=== PATIENT | female | born 1970 | race Caucasian/White ===

== ENCOUNTER 2017-07-27 19:00 | Emergency (ER) | payer BC, OTHER ==
[2017-07-27 19:12] VITALS: TEMP 98.7
[2017-07-27] MEDS ORDERED: MORPHINE SULFATE/PF 10MG/10ML VL IV STA (19:57)
[2017-07-27] MEDS ORDERED: METOCLOPRAMIDE 5 MG/ML 2 ML VIAL IVP STA (19:57)
[2017-07-27] MEDS ORDERED: diphenhydrAMINE 50 MG/ML 1 ML VIAL IVP STA (19:57)
[2017-07-27] MEDS ORDERED: SODIUM CHLORIDE 0.9% 1,000 ML IV STA ×2 (19:57)
--- NOTE | 2017-07-27 19:57 | ED ---
General Adult HPI - General Chief complaint: Headache Stated complaint: MIGRAINE Time Seen by Provider: 07/27/17 19:47 Source: patient, RN notes reviewed, old records reviewed Mode of arrival: wheelchair Limitations: no limitations - History of Present Illness Initial comments: 47-year-old female with history of migraine headache and trigeminal neuralgia presents with worsening headache over the past several days. Patient states that approximately one week ago her trigeminal neuralgia began acting up, she has had shooting pain on the right side of her face intermittently. She took one extra carbamazepine today in hopes of alleviating the symptoms. Patient also has history of migraine and has had typical frontal migraine which is worsening over the past several days. This was gradual in onset. She does have some mild photophobia and nausea. No vomiting. Denies any focal weakness. States she is generally weak. Denies any paresthesias, no vision changes. Headaches are typical in character to her usual headache however they are more severe. No fever or chills, no chest pain or shortness of breath. No abdominal pain. - Related Data Home Medications Medication Instructions Recorded Confirmed Citalopram Hydrobromide [CeleXA] 40 mg PO DAILY 04/13/14 07/27/17 carBAMazepine [TEGretol] 200 mg PO TID 04/13/14 07/27/17 Ascorbic Acid [Vitamin C] 1,000 mg PO DAILY 07/27/17 07/27/17 Allergies Allergy/AdvReac Type Severity Reaction Status Date / Time No Known Allergies Allergy Verified 07/27/17 20:19 Review of Systems ROS Statement: Those systems with pertinent positive or pertinent negative responses have been documented in the HPI. ROS Other: All systems not noted in ROS Statement are negative. Past Medical History Past Medical History: Cancer, Thyroid Disorder Additional Past Medical History / Comment(s): HYPOTHYROID(NO MEDS), MIGRAINES, BREAST CANCER. History of Any Multi-Drug Resistant Organisms: None Reported Past Surgical History: Uterine Ablation Additional Past Surgical History / Comment(s): STATES MULTIPLE SURGERYS-ADD TO HX ON ARRIVAL. Past Anesthesia/Blood Transfusion Reactions: Motion Sickness, Postoperative Nausea & Vomiting (PONV) Past Psychological History: Anxiety Smoking Status: Former smoker Past Alcohol Use History: None Reported Past Drug Use History: None Reported General Exam Limitations: no limitations General appearance: alert, in distress Head exam: Present: atraumatic, normocephalic Eye exam: Present: normal appearance, PERRL, EOMI ENT exam: Present: mucous membranes dry Neck exam: Present: normal inspection, full ROM. Absent: tenderness, meningismus Respiratory exam: Present: normal lung sounds bilaterally. Absent: respiratory distress, wheezes Cardiovascular Exam: Present: regular rate, normal rhythm GI/Abdominal exam: Present: soft. Absent: distended, tenderness, guarding, rebound Neurological exam: Present: alert, oriented X3, CN II-XII intact. Absent: motor sensory deficit Psychiatric exam: Present: normal affect, normal mood Skin exam: Present: warm, dry, intact. Absent: cyanosis, diaphoretic Course Vital Signs 07/27/17 07/27/17 07/27/17 19:08 20:25 21:00 Temperature 98.7 F Pulse Rate 101 H 84 81 Respiratory 20 16 16 Rate Blood Pressure 133/77 127/83 113/69 O2 Sat by Pulse 96 93 L 94 L Oximetry - Reevaluation(s) Reevaluation #1: 07/27/17 21:47 On reevaluation, patient is completely pain-free headache resolved. Neuro exam : Intact, no deficits. Medical Decision Making - Medical Decision Making 47-year-old female presents for evaluation of headache, history of migraine headache and trigeminal neuralgia. Both of her symptoms are consistent with previous headaches however more severe. Patient's neuro exam is nonfocal. Head CT is obtained, this is negative for any acute intracranial hemorrhage or mass effect. Patient is given a headache cocktail and IV hydration. On reevaluation her headache is completely resolved. She is resting emergency department. She is accompanied by her niece will drive her home. She lives with her and will return with any worsening or changing symptoms. CBC and electrolytes within normal limits. - Lab Data Result diagrams: 07/27/17 19:52 07/27/17 19:52 Lab Results 07/27/17 07/27/17 Range/Units 19:52 19:52 WBC 8.9 (3.8-10.6) k/uL RBC 4.17 (3.80-5.40) m/uL Hgb 13.6 (11.4-16.0) gm/dL Hct 40.3 (34.0-46.0) % MCV 96.6 (80.0-100.0) fL MCH 32.6 (25.0-35.0) pg MCHC 33.7 (31.0-37.0) g/dL RDW 12.7 (11.5-15.5) % Plt Count 443 (150-450) k/uL Neutrophils % 65 % Lymphocytes % 24 % Monocytes % 6 % Eosinophils % 3 % Basophils % 1 % Neutrophils # 5.8 (1.3-7.7) k/uL Lymphocytes # 2.1 (1.0-4.8) k/uL Monocytes # 0.5 (0-1.0) k/uL Eosinophils # 0.2 (0-0.7) k/uL Basophils # 0.1 (0-0.2) k/uL Sodium 137 (137-145) mmol/L Potassium 4.2 (3.5-5.1) mmol/L Chloride 99 (98-107) mmol/L Carbon Dioxide 23 (22-30) mmol/L Anion Gap 15 mmol/L BUN 8 (7-17) mg/dL Creatinine 0.60 (0.52-1.04) mg/dL Est GFR (CKD-EPI)AfAm >90 (>60 ml/min/1.73 sqM) Est GFR (CKD-EPI)NonAf >90 (>60 ml/min/1.73 sqM) Glucose 158 H (74-99) mg/dL Calcium 9.3 (8.4-10.2) mg/dL Total Bilirubin 0.4 (0.2-1.3) mg/dL AST 27 (14-36) U/L ALT 61 H (9-52) U/L Alkaline Phosphatase 147 H (38-126) U/L Total Protein 7.1 (6.3-8.2) g/dL Albumin 4.1 (3.5-5.0) g/dL Disposition Clinical Impression: Trigeminal neuralgia, Migraine Disposition: HOME SELF-CARE Condition: Good Instructions: Trigeminal Neuralgia (ED), Migraine Headache (ED) Referrals: Rashel Harrington MD [Primary Care Provider] - 1-2 days Time of Disposition: 21:49
[2017-07-27] MEDS ORDERED: ACETAMINOPHEN IV (For NPO) 1,000 MG in EMPTY BAG 1 BAG IVPB ONE (19:58)
[2017-07-27 20:13] LABS: Basophils # (A) 0.1 k/uL (0-0.2); Basophils % (A) 1 %; Eosinophils # (A) 0.2 k/uL (0-0.7); Eosinophils % (A) 3 %; HCT 40.3 % (34.0-46.0); HGB 13.6 gm/dL (11.4-16.0); Lymphocytes # (A) 2.1 k/uL (1.0-4.8); Lymphocytes % (A) 24 %; MCH 32.6 pg (25.0-35.0); MCHC 33.7 g/dL (31.0-37.0); MCV 96.6 fL (80.0-100.0); Mean Platelet Volume 7.7; Monocytes # (A) 0.5 k/uL (0-1.0); Monocytes % (A) 6 %; Neutrophils # (A) 5.8 k/uL (1.3-7.7); Neutrophils % (A) 65 %; Platelet Count 443 k/uL (150-450); RBC 4.17 m/uL (3.80-5.40); RDW 12.7 % (11.5-15.5); WBC 8.9 k/uL (3.8-10.6)
[2017-07-27 20:25] LABS: ALT 61 U/L (9-52); AST 27 U/L (14-36); Albumin 4.1 g/dL (3.5-5.0); Alkaline Phosphatase 147 U/L (38-126); Anion Gap 15 mmol/L; Blood Urea Nitrogen 8 mg/dL (7-17); Calcium 9.3 mg/dL (8.4-10.2); Carbon Dioxide 23 mmol/L (22-30); Chloride 99 mmol/L (98-107); Glucose 158 mg/dL (74-99); Potassium 4.2 mmol/L (3.5-5.1); Sodium 137 mmol/L (137-145); Total Bilirubin 0.4 mg/dL (0.2-1.3); Total Protein 7.1 g/dL (6.3-8.2)
[2017-07-27 20:32] VITALS: RESP 16
--- NOTE | 2017-07-27 20:35 | CT ---
EXAMINATION TYPE: CT brain wo con DATE OF EXAM: 07/27/2017 COMPARISON: NONE HISTORY: c/o headache and dizziness CT DLP: 981.7 mGycm. Automated Exposure Control for Dose Reduction was Utilized. TECHNIQUE: CT scan of the head is performed without contrast. FINDINGS: Ventricles have normal size. There is no mass effect nor midline shift. There is no sign of intracranial hemorrhage. There is minimal mucosal thickening in the right maxillary sinus. [place] um is intact. CONCLUSION: Normal CT scan of the brain.
[2017-07-27 21:16] VITALS: BP 113/69; PULSE 81
== END 2017-07-27 22:04 | disposition home or self-care (01) ==
LOC: EC 19:00
DX: G50.0 Trigeminal neuralgia (principal); G43.909 Migraine, unspecified, not intractable, without status migrainosus; Z85.3 Personal history of malignant neoplasm of breast; Z79.899 Other long term (current) drug therapy; Z87.891 Personal history of nicotine dependence
CPT/HCPCS: 99284; 96374; 96375 ×2; 96361; 36415; 93005; 80053; 85025; 70450; J1200; J2765; J0131; J2270

== ENCOUNTER 2017-07-28 00:58 | Emergency (ER) | payer BC ==
[2017-07-28] MEDS ORDERED: ONDANSETRON 4 MG/2 ML VIAL IVP STA (01:19)
[2017-07-28] MEDS ORDERED: SODIUM CHLORIDE 0.9% 1,000 ML IV STA (01:19)
[2017-07-28] MEDS ORDERED: FAMOTIDINE 20 MG/2 ML VIAL IV STA (01:19)
[2017-07-28] MEDS ORDERED: diphenhydrAMINE 50 MG/ML 1 ML VIAL IVP STA (01:19)
--- NOTE | 2017-07-28 01:34 | ED ---
Nausea/Vomiting/Diarrhea HPI - General Chief complaint: Nausea/Vomiting/Diarrhea Stated complaint: Vomiting-Revisit Time Seen by Provider: 07/28/17 01:13 Source: patient, RN notes reviewed Mode of arrival: wheelchair Limitations: no limitations - History of Present Illness Initial comments: This is a 47-year-old female who presents to the emergency department with chief complaint of nausea and vomiting. Patient was seen earlier this evening for a migraine. She was treated with morphine and antiemetics. Patient's pain improved and she was discharged home. Then, prior to arrival patient developed nausea and vomiting. She states that she also feels dizzy, however does state that her headache is no longer present. Denies fevers or chills, chest pain or shortness of breath, abdominal pain, constipation or diarrhea, headache or vision changes. On review of documentation, computed tomography scan of the brain was obtained which revealed no acute intracranial abnormalities. - Related Data Home Medications Medication Instructions Recorded Confirmed Citalopram Hydrobromide [CeleXA] 40 mg PO DAILY 04/13/14 07/27/17 carBAMazepine [TEGretol] 200 mg PO TID 04/13/14 07/27/17 Ascorbic Acid [Vitamin C] 1,000 mg PO DAILY 07/27/17 07/27/17 Allergies Allergy/AdvReac Type Severity Reaction Status Date / Time No Known Allergies Allergy Verified 07/28/17 01:04 Review of Systems ROS Statement: Those systems with pertinent positive or pertinent negative responses have been documented in the HPI. ROS Other: All systems not noted in ROS Statement are negative. Past Medical History Past Medical History: Cancer, Thyroid Disorder Additional Past Medical History / Comment(s): HYPOTHYROID(NO MEDS), MIGRAINES, BREAST CANCER. History of Any Multi-Drug Resistant Organisms: None Reported Past Surgical History: Uterine Ablation Additional Past Surgical History / Comment(s): STATES MULTIPLE SURGERYS-ADD TO HX ON ARRIVAL. Past Anesthesia/Blood Transfusion Reactions: Motion Sickness, Postoperative Nausea & Vomiting (PONV) Past Psychological History: Anxiety Smoking Status: Former smoker Past Alcohol Use History: None Reported Past Drug Use History: None Reported General Exam - General Exam Comments Initial Comments: General: Awake and alert, well-developed; in no apparent distress. Lying comfortably on ED stretcher on her side with a basin. Patient does have episode of vomiting during physical examination. HEENT: Head atraumatic, normocephalic. Pupils are equal, round and reactive to light. Extraocular movements intact. Oropharynx moist without erythema or exudate. Neck: Supple. Normal ROM. Cardiovascular: Regular rate and rhythm. No murmurs, rubs or gallops. Chest symmetrical. Respiratory: Lungs clear to auscultation bilaterally. No wheezes, rales or rhonchi. Normal respiratory effort with no use of accessory muscles. Abdomen: Soft, non-tender, non-distended. No rigidity, rebound or guarding. Normal bowel sounds in all 4 quadrants. Musculoskeletal: Normal ROM, no tenderness bilateral upper and lower extremities. Ambulating normally. Skin: [place], warm and dry without rashes or lesions. Neurological: Alert and oriented x3. CN II-XII grossly intact. No focal neuro deficits. Patient appears lethargic and must be asked questions multiple times , however she is easily arousable. Answers questions appropriately and in complete sentences. Psychiatric: Normal mood and affect. No overt signs of depression or anxiety noted. Limitations: no limitations Course Vital Signs 07/28/17 01:00 Temperature 97.4 F L Pulse Rate 92 Respiratory 20 Rate Blood Pressure 122/81 O2 Sat by Pulse 96 Oximetry Medical Decision Making - Medical Decision Making This is a 47-year-old female who presents to the emergency department with chief complaint of nausea and vomiting. Patient was seen earlier this evening for a migraine. She was treated with morphine and antiemetics. Patient's migraine improved and she was discharged home. A computed tomography scan was obtained which revealed no acute intracranial abnormalities. Patient returns to the emergency department complaining of nausea and vomiting. She has no other complaints. She was given antiemetic and antihistamine while in the emergency department. She states that her symptoms have much improved. She states she is tired and wants to be discharged home. Labs were drawn and an EKG was obtained. CBC and CMP were unremarkable. EKG revealed a normal sinus rhythm with prolonged QT. No ST segment elevation or depression. Patient's vital signs are stable and she is in no acute distress. She will be discharged home. Return parameters were discussed. Patient is in agreement with plan and voices understanding. All questions were answered. - Lab Data Result diagrams: 07/28/17 01:34 07/28/17 01:34 Lab Results 07/28/17 07/28/17 Range/Units 01:34 01:34 WBC 11.5 H (3.8-10.6) k/uL RBC 4.10 (3.80-5.40) m/uL Hgb 13.9 (11.4-16.0) gm/dL Hct 39.7 (34.0-46.0) % MCV 96.8 (80.0-100.0) fL MCH 34.0 (25.0-35.0) pg MCHC 35.1 (31.0-37.0) g/dL RDW 12.7 (11.5-15.5) % Plt Count 462 H (150-450) k/uL Neutrophils % 72 % Lymphocytes % 19 % Monocytes % 4 % Eosinophils % 2 % Basophils % 1 % Neutrophils # 8.3 H (1.3-7.7) k/uL Lymphocytes # 2.2 (1.0-4.8) k/uL Monocytes # 0.4 (0-1.0) k/uL Eosinophils # 0.2 (0-0.7) k/uL Basophils # 0.1 (0-0.2) k/uL Sodium 137 (137-145) mmol/L Potassium 4.0 (3.5-5.1) mmol/L Chloride 103 (98-107) mmol/L Carbon Dioxide 19 L (22-30) mmol/L Anion Gap 15 mmol/L BUN 8 (7-17) mg/dL Creatinine 0.50 L (0.52-1.04) mg/dL Est GFR (CKD-EPI)AfAm >90 (>60 ml/min/1.73 sqM) Est GFR (CKD-EPI)NonAf >90 (>60 ml/min/1.73 sqM) Glucose 176 H (74-99) mg/dL Calcium 9.2 (8.4-10.2) mg/dL Total Bilirubin 0.3 (0.2-1.3) mg/dL AST 27 (14-36) U/L ALT 63 H (9-52) U/L Alkaline Phosphatase 149 H (38-126) U/L Total Protein 7.0 (6.3-8.2) g/dL Albumin 4.0 (3.5-5.0) g/dL 07/28/17 02:32 1:40:43. Normal sinus rhythm. Possible inferior infarct, age undetermined. Prolonged QT. Ventricular rate 86 bpm, [place] interval 158, QS duration 96, QT/QTc 420/502. Disposition Clinical Impression: Drug-induced nausea and vomiting Disposition: HOME SELF-CARE Condition: Good Instructions: Acute Nausea and Vomiting (ED) Additional Instructions: Please follow up with primary care provider within 1-2 days. Return to emergency department if symptoms should worsen or any concerns arise. Referrals: Rashel Harrington MD [Primary Care Provider] - 1-2 days Time of Disposition: 02:32
[2017-07-28 01:43] LABS: Basophils # (A) 0.1 k/uL (0-0.2); Basophils % (A) 1 %; Eosinophils # (A) 0.2 k/uL (0-0.7); Eosinophils % (A) 2 %; HCT 39.7 % (34.0-46.0); HGB 13.9 gm/dL (11.4-16.0); Lymphocytes # (A) 2.2 k/uL (1.0-4.8); Lymphocytes % (A) 19 %; MCHC 35.1 g/dL (31.0-37.0); MCV 96.8 fL (80.0-100.0); Monocytes # (A) 0.4 k/uL (0-1.0); Monocytes % (A) 4 %; Neutrophils # (A) 8.3 k/uL (1.3-7.7); Neutrophils % (A) 72 %; Platelet Count 462 k/uL (150-450); RDW 12.7 % (11.5-15.5); WBC 11.5 k/uL (3.8-10.6)
[2017-07-28 01:54] LABS: ALT 63 U/L (9-52); AST 27 U/L (14-36); Alkaline Phosphatase 149 U/L (38-126); Anion Gap 15 mmol/L; Blood Urea Nitrogen 8 mg/dL (7-17); Calcium 9.2 mg/dL (8.4-10.2); Carbon Dioxide 19 mmol/L (22-30); Chloride 103 mmol/L (98-107); Glucose 176 mg/dL (74-99); Sodium 137 mmol/L (137-145); Total Bilirubin 0.3 mg/dL (0.2-1.3)
[2017-07-28 02:53] VITALS: BP 132/77; PULSE 90; RESP 17; TEMP 98.9
== END 2017-07-28 02:53 | disposition home or self-care (01) ==
LOC: EC 00:58
DX: R11.2 Nausea with vomiting, unspecified (principal); T40.2X5A Adverse effect of other opioids, initial encounter; R42 Dizziness and giddiness; F41.9 Anxiety disorder, unspecified; Z85.3 Personal history of malignant neoplasm of breast; Z87.891 Personal history of nicotine dependence; Z79.899 Other long term (current) drug therapy
CPT/HCPCS: 36415; 93005; 80053; 85025; 99284; 96374; 96375 ×2; 96361; J1200; J2405

== ENCOUNTER 2017-07-29 03:39 | Observation (INO) | payer BC ==
[2017-07-29] MEDS ORDERED: ONDANSETRON 4 MG/2 ML VIAL IVP STA (03:53)
[2017-07-29 04:25] LABS: Basophils % (A) 0 %; Eosinophils % (A) 0 %; HCT 39.9 % (34.0-46.0); HGB 13.8 gm/dL (11.4-16.0); Lymphocytes # (A) 1.6 k/uL (1.0-4.8); Lymphocytes % (A) 18 %; MCH 33.3 pg (25.0-35.0); MCHC 34.4 g/dL (31.0-37.0); MCV 96.7 fL (80.0-100.0); Mean Platelet Volume 7.1; Monocytes # (A) 0.3 k/uL (0-1.0); Monocytes % (A) 3 %; Neutrophils # (A) 6.7 k/uL (1.3-7.7); Neutrophils % (A) 76 %; Platelet Count 451 k/uL (150-450); RBC 4.13 m/uL (3.80-5.40); RDW 12.8 % (11.5-15.5); WBC 8.8 k/uL (3.8-10.6)
[2017-07-29 04:32] LABS: ALT 53 U/L (9-52); AST 24 U/L (14-36); Albumin 4.2 g/dL (3.5-5.0); Alkaline Phosphatase 157 U/L (38-126); Amylase <30 U/L (30-110); Anion Gap 15 mmol/L; Blood Urea Nitrogen 8 mg/dL (7-17); Calcium 9.8 mg/dL (8.4-10.2); Carbon Dioxide 22 mmol/L (22-30); Chloride 101 mmol/L (98-107); Glucose 138 mg/dL (74-99); Lipase 20 U/L (23-300); Potassium 4.1 mmol/L (3.5-5.1); Sodium 138 mmol/L (137-145); Total Bilirubin 0.6 mg/dL (0.2-1.3); Total Protein 7.3 g/dL (6.3-8.2)
[2017-07-29] MEDS ORDERED: SODIUM CHLORIDE 0.9% 1,000 ML IV ONE (04:52)
[2017-07-29] MEDS ORDERED: METOCLOPRAMIDE 5 MG/ML 2 ML VIAL IVP STA (04:52)
--- NOTE | 2017-07-29 04:56 | ED ---
Nausea/Vomiting/Diarrhea HPI - General Chief complaint: Nausea/Vomiting/Diarrhea Stated complaint: Vomiting Time Seen by Provider: 07/29/17 03:52 Source: patient Mode of arrival: wheelchair Limitations: no limitations - History of Present Illness Initial comments: This patient is a 47-year-old woman presenting to have evaluation for intractable nausea and vomiting. She states this came on after she was given morphine here 2 days ago for headache. States that the headache has continued to be somewhat intermittent. She states she'll get a wave that Moves down from Her Head Towards Her Abdomen. When This Comes on It Lasts about 15 Seconds. Again she was seen here she had a head CT which was negative and she was given dose of morphine and following that she has had the vomiting and not been able keep down any fluids at home. He has not had fevers or chills. No associated abdominal pains. MD complaint: nausea, vomiting -: days(s) Description of Vomiting: food contents Associated Abdominal Pain: No - Related Data Home Medications Medication Instructions Recorded Confirmed Citalopram Hydrobromide [CeleXA] 40 mg PO DAILY 04/13/14 07/27/17 carBAMazepine [TEGretol] 200 mg PO TID 04/13/14 07/27/17 Ascorbic Acid [Vitamin C] 1,000 mg PO DAILY 07/27/17 07/27/17 Allergies Allergy/AdvReac Type Severity Reaction Status Date / Time No Known Allergies Allergy Verified 07/29/17 03:44 Review of Systems ROS Statement: Those systems with pertinent positive or pertinent negative responses have been documented in the HPI. ROS Other: All systems not noted in ROS Statement are negative. Constitutional: Denies: fever, chills, weakness Eyes: Denies: eye pain, vision change ENT: Denies: ear pain, hearing loss Respiratory: Denies: cough, dyspnea Cardiovascular: Denies: chest pain, palpitations, edema, syncope Gastrointestinal: Reports: as per HPI, nausea, vomiting. Denies: abdominal pain , diarrhea Genitourinary: Denies: dysuria, hematuria Musculoskeletal: Denies: back pain Skin: Denies: rash Neurological: Reports: as per HPI, headache. Denies: weakness, numbness, paresthesias, confusion, abnormal gait, vertigo Past Medical History Past Medical History: Cancer, Thyroid Disorder Additional Past Medical History / Comment(s): HYPOTHYROID(NO MEDS), MIGRAINES, BREAST CANCER. History of Any Multi-Drug Resistant Organisms: None Reported Past Surgical History: Uterine Ablation Additional Past Surgical History / Comment(s): STATES MULTIPLE SURGERYS-ADD TO HX ON ARRIVAL. Past Anesthesia/Blood Transfusion Reactions: Motion Sickness, Postoperative Nausea & Vomiting (PONV) Past Psychological History: Anxiety Smoking Status: Former smoker Past Alcohol Use History: None Reported Past Drug Use History: None Reported General Exam Limitations: no limitations General appearance: alert, in no apparent distress Head exam: Present: atraumatic, normocephalic Eye exam: Present: normal appearance, PERRL, EOMI. Absent: scleral icterus, conjunctival injection, nystagmus ENT exam: Present: normal oropharynx Neck exam: Present: normal inspection, full ROM Respiratory exam: Present: normal lung sounds bilaterally. Absent: respiratory distress, wheezes, rales, rhonchi, stridor Cardiovascular Exam: Present: regular rate, normal rhythm, normal heart sounds. Absent: systolic murmur, diastolic murmur, rubs, gallop GI/Abdominal exam: Present: soft. Absent: distended, tenderness, guarding, rebound, mass Extremities exam: Present: normal inspection, normal capillary refill. Absent: pedal edema, calf tenderness Back exam: Present: normal inspection. Absent: CVA tenderness (R), CVA tenderness (L) Neurological exam: Present: alert, oriented X3, CN II-XII intact. Absent: motor sensory deficit Skin exam: Present: warm, dry, intact, normal color. Absent: rash Course Vital Signs 07/29/17 03:43 Temperature 98.8 F Pulse Rate 82 Respiratory 16 Rate Blood Pressure 127/74 O2 Sat by Pulse 96 Oximetry Medical Decision Making - Lab Data Result diagrams: 07/29/17 04:10 07/29/17 04:10 Lab Results 07/29/17 07/29/17 Range/Units 04:10 04:10 WBC 8.8 (3.8-10.6) k/uL RBC 4.13 (3.80-5.40) m/uL Hgb 13.8 (11.4-16.0) gm/dL Hct 39.9 (34.0-46.0) % MCV 96.7 (80.0-100.0) fL MCH 33.3 (25.0-35.0) pg MCHC 34.4 (31.0-37.0) g/dL RDW 12.8 (11.5-15.5) % Plt Count 451 H (150-450) k/uL Neutrophils % 76 % Lymphocytes % 18 % Monocytes % 3 % Eosinophils % 0 % Basophils % 0 % Neutrophils # 6.7 (1.3-7.7) k/uL Lymphocytes # 1.6 (1.0-4.8) k/uL Monocytes # 0.3 (0-1.0) k/uL Eosinophils # 0.0 (0-0.7) k/uL Basophils # 0.0 (0-0.2) k/uL Sodium 138 (137-145) mmol/L Potassium 4.1 (3.5-5.1) mmol/L Chloride 101 (98-107) mmol/L Carbon Dioxide 22 (22-30) mmol/L Anion Gap 15 mmol/L BUN 8 (7-17) mg/dL Creatinine 0.50 L (0.52-1.04) mg/dL Est GFR (CKD-EPI)AfAm >90 (>60 ml/min/1.73 sqM) Est GFR (CKD-EPI)NonAf >90 (>60 ml/min/1.73 sqM) Glucose 138 H (74-99) mg/dL Calcium 9.8 (8.4-10.2) mg/dL Total Bilirubin 0.6 (0.2-1.3) mg/dL AST 24 (14-36) U/L ALT 53 H (9-52) U/L Alkaline Phosphatase 157 H (38-126) U/L Total Protein 7.3 (6.3-8.2) g/dL Albumin 4.2 (3.5-5.0) g/dL Amylase <30 L (30-110) U/L Lipase 20 L (23-300) U/L Disposition Referrals: Rashel Harrington MD [Primary Care Provider] - 1-2 days
[2017-07-29 05:43] LABS: Appearance,Urine Clear (Clear); Bilirubin,Urine Negative (Negative); Blood,Urine Negative (Negative); Color,Urine Light Yellow; Glucose,Urine (UA) Negative (Negative); Ketones,Urine Negative (Negative); Leukocyte Esterase,Urine Negative (Negative); Nitrite,Urine Negative (Negative); Protein,Urine Negative (Negative); Specific Gravity,Urine 1.005 (1.001-1.035)
[2017-07-29] MEDS ORDERED: NALOXONE 0.4 MG/ML 1 ML VIAL IV PRN ×2 (07:09→10:38)
[2017-07-29] MEDS ORDERED: ACETAMINOPHEN TAB 325 MG TAB PO PRN (07:09)
[2017-07-29] MEDS ORDERED: SODIUM CHLORIDE 0.9% 1,000 ML IV SCH (07:15)
[2017-07-29 08:14] VITALS: RESP 16
[2017-07-29 08:36] VITALS: BMI 28.3
[2017-07-29] MEDS: CITALOPRAM HYDROBROMIDE 20 MG TAB PO SCH (10:34)
[2017-07-29] MEDS: FAMOTIDINE 20 MG TAB PO SCH ×2 (10:34→21:32)
[2017-07-29] MEDS ORDERED: LORazepam 0.5 MG TAB PO PRN (10:38)
[2017-07-29] MEDS ORDERED: MELATONIN 3 MG TABLET PO PRN (10:38)
[2017-07-29] MEDS ORDERED: CALCIUM CARBONATE 500 MG CHEWABLE PO PRN (10:38)
[2017-07-29] MEDS: ONDANSETRON 4 MG/2 ML VIAL IVP PRN (11:41)
[2017-07-29] MEDS ORDERED: RX INFO: IV CONTRAST WAS GIVEN 1 EACH MISC MISCELLANE PRN ×2 (13:43→14:08)
[2017-07-29] MEDS ORDERED: DIAZEPAM 5 MG/ML 2 ML INJ IVP STA (13:47)
[2017-07-29] MEDS: methylPREDNISolone SOD SUCCI 40 MG/ML 1 ML VIAL IV SCH (15:00)
[2017-07-29] MEDS: NICOTINE 14MG/24HR PATCH TRANSDERM SCH (15:03)
[2017-07-29] MEDS: PANTOPRAZOLE 40 MG TABLET PO SCH (15:03)
[2017-07-29] MEDS: LACTATED RINGERS 1,000 ML IV SCH ×2 (15:05→21:35)
[2017-07-29] MEDS: NAPROXEN 250 MG TAB PO SCH ×2 (15:06→21:33)
--- NOTE | 2017-07-29 15:21 | CT ---
EXAMINATION TYPE: CT head without contrast CT angio head neck DATE OF EXAM: 07/29/2017 COMPARISON: 07/27/2017 HISTORY: 47-year-old female Headache TECHNIQUE: Contiguous axial scanning of the head and neck performed without and with IV Contrast, pat ient injected with 65ml mL of Isovue 370. Coronal/sagittal MIP reconstructions performed. 3-D reconst ructions generated on a dedicated independent workstation. CT DLP: 1143 mGycm Automated exposure control for dose reduction was used. FINDINGS: On initial noncontrast scan, there is no evidence of acute intracranial hemorrhage, acute ischemic c hanges, mass, mass-effect, or extra-axial fluid collection. There is no effacement of cerebral sulci or basal subarachnoid cisterns. There is no hydrocephalus. There is no midline shift. Watson-white matter distinction is preserved. Mild mucosal thickening floor of the right maxillary sinus. Mastoid air cells well pneumatized. Orbit s and globes are intact. NECK: Conventional arch vessel branching anatomy. Patent arch vessel origins. The right common and internal carotid arteries are widely patent. The left common and internal carotid arteries are widely patent. There is mild tortuosity of the prox imal internal carotid artery with a slight kink after the carotid bulb. Both vertebral arteries are codominant and patent throughout the course. HEAD: The internal carotid, vertebral, and basilar arteries are patent. No significant stenosis is identifi ed. A1 segment left anterior cerebral artery is hypoplastic relative to the contralateral side. No an eurysmal change is seen The dural venous sinuses are patent. IMPRESSION: 1. NO ACUTE INTRACRANIAL ABNORMALITY SEEN. 2. PATENT CAROTID VESSELS IN THE NECK. THERE IS MILD TORTUOSITY OF THE PROXIMAL LEFT INTERNAL CAROTID ARTERY CAUSING A SLIGHT KINK AFTER THE CAROTID BULB. 3. NO LARGE VESSEL INTRACRANIAL ARTERIAL OCCLUSION.
[2017-07-29] MEDS ORDERED: carBAMazepine 200 MG TAB PO SCH (16:00)
[2017-07-29] MEDS: ENOXAPARIN 40 MG/0.4 ML SYRINGE SQ SCH (16:06)
[2017-07-29] MEDS: carBAMazepine 200 MG TAB PO SCH ×2 (17:34→21:32)
--- NOTE | 2017-07-29 17:52 | P.CNNES ---
History of Present Illness Consult date: 07/29/17 Reason for Consult: Patient with recurrent headache and nausea. History of Present Illness: This patient is a 47-year-old right-handed white female who has a long-standing history of recurrent right-sided trigeminal neuralgia and migraine headaches. Patient was in the ER 2 days ago for severe headache symptoms felt to be related to her migraine. She was given some pain medications and discharge from the emergency room at that time. She returned as she continued to have nausea vomiting symptoms. She has a combination of migraine headaches as well as known history of trigeminal neuralgia affecting the right side of her face for the past 25 years. She has been on treatment for the trigeminal neuralgia and is currently been taking Tegretol 300 mg by mouth 3 times a day. She states that recently there is been a flare of her trigeminal pain that affects the right side of her face in all 3 trigeminal divisions. It is quite in the past stating for her. She is unable to work during these acute episodes. She did undergo a computed tomography scan of the brain on her first admission to the emergency room on 07/27/2017. This CAT scan was reported normal CT of the brain with no evidence of acute stroke or hemorrhage. Due to the ongoing recurrence of the headache pain she returned today to the emergency room and was seen in the ER by Dr. Robledo. She was sent for a CT angiogram of the head and neck which was completed today and reveals no acute intracranial abnormality. There were patent carotid vessels in the neck no large vessel intracranial arterial occlusion was noted. As mentioned this was a normal CTA angiogram of the head and neck. She does have history of having had an MRI done about 5 years ago of the brain which revealed some white matter lesions. She underwent a lumbar puncture to rule out MS and according to the patient this was negative. She does have history of breast cancer but has remained cancer free for over 10 years. She does follow with her regular physician as well as her oncologist for this condition. Patient states that the trigeminal neuralgia pain has been worsening over the last 5 years. She experiences 3-4 episodes a year. She has tried other medications in combination with Tegretol but had to discontinue use of Neurontin as it was causing ankle swelling. She is currently on 300 mg of Tegretol 3 times a day. Due to the onset of nausea vomiting symptoms she was readmitted to the hospital today. She has been treated with IV Valium as well as IV Solu-Medrol and placed on Protonix for the nausea vomiting symptoms. This has helped as she has noted some improvement. This patient likely has intractable right-sided trigeminal neuralgia despite aggressive medical management. She may be a candidate for alternative and neurosurgical approaches for treatment of this condition which has been progressive over the last 5 years. We have discussed this in detail today with the patient. She will bring this up with her primary care physician upon discharge. At this time the patient should continue on her current dose of Tegretol. Apparently higher doses have caused her side effects. Depending on how she responds to the IV Solu-Medrol and the Valium we may consider adding Lyrica as a adjunctive therapy for the trigeminal neuralgia. However at this point we will wait since she is on multiple medications before adding an additional medication for her during this admission. Once her nausea vomiting symptoms are resolved she may be a candidate for further outpatient workup as noted above. She has responded somewhat better to treatment today and we will need to continue close monitoring of her condition during this admission. Patient apparently follows with Dr. Womack but has not seen him regarding the trigeminal neuralgia for the past year. We suggest she follow up with him upon discharge for further management. Patient is now admitted and neurology has been consulted for further evaluation and recommendations. Review of Systems Constitutional: Denies chills, Denies fever Eyes: denies blurred vision, denies pain Ears, nose, mouth and throat: Denies headache, Denies sore throat Cardiovascular: Denies chest pain, Denies shortness of breath Respiratory: Denies cough Gastrointestinal: Denies abdominal pain, Denies diarrhea, Denies nausea, Denies vomiting Genitourinary: Denies dysuria, Denies hematuria Musculoskeletal: Denies myalgias Integumentary: Denies pruritus, Denies rash Neurological: Reports headaches, Reports migraines, Reports paresthesias, Reports tingling, Denies numbness, Denies weakness Psychiatric: Denies anxiety, Denies depression Endocrine: Denies fatigue, Denies weight change Past Medical History Past Medical History: Cancer, Thyroid Disorder Additional Past Medical History / Comment(s): HYPOTHYROID(NO MEDS), MIGRAINES, BREAST CANCER. trigeminal neuralgia History of Any Multi-Drug Resistant Organisms: None Reported Past Surgical History: Appendectomy, Uterine Ablation Additional Past Surgical History / Comment(s): lympho nodes removed left side, chemo, nerve removed from foot, breast reconstruction Past Anesthesia/Blood Transfusion Reactions: Motion Sickness, Postoperative Nausea & Vomiting (PONV) Smoking Status: Former smoker - Past Family History Mother History Unknown: Yes Family Medical History: Cancer Father History Unknown: Yes Family Medical History: Hypertension Medications and Allergies Home Medications Medication Instructions Recorded Confirmed Type Citalopram Hydrobromide [CeleXA] 40 mg PO DAILY 04/13/14 07/29/17 History carBAMazepine [TEGretol] 300 mg PO TID 04/13/14 07/29/17 History Cholecalciferol (Vitamin D3) 2,000 unit PO DAILY 07/29/17 07/29/17 History [Vitamin D3] Allergies Allergy/AdvReac Type Severity Reaction Status Date / Time No Known Allergies Allergy Verified 07/29/17 07:33 Physical Examination - Vital Signs Vital Signs: Vital Signs Temp Pulse Pulse Resp BP BP Pulse Ox 07/29/17 14:16 97.9 F 93 16 115/77 96 07/29/17 08:12 98.5 F 80 16 126/82 95 07/29/17 07:18 98.2 F 82 18 124/70 95 07/29/17 06:47 82 18 112/71 95 07/29/17 05:00 77 18 106/56 97 07/29/17 03:43 98.8 F 82 16 127/74 96 Intake and Output 07/29/17 07/29/17 07/29/17 06:59 14:59 22:59 Intake Total 270 Balance 270 Intake: IV 150 Sodium Chloride 0.9% 1, 150 000 ml @ 75 mls/hr IV . [id number] [facility] Rx#:[id number] Oral 120 Other: Weight 74.843 kg 74.843 kg - Constitutional General appearance: average body habitus, cooperative - EENT EENT: mucous membranes moist, mucous membranes dry - Respiratory Respiratory: lungs clear, normal breath sounds - Cardiovascular Cardiovascular: regular rate, normal S1, normal S2 Extremities: no peripheral edema bilaterally - Gastrointestinal Gastrointestinal: normoactive bowel sounds - Integumentary Integumentary: normal - Neurologic Cranial nerve examination: PERRL, EOMI, VFF, V1/V2/V3 grossly intact, face symmetric, tongue midline, intact gag reflex, intact corneal reflex, normal palatal elevation Speech examination: intact Sensorimotor examination: intact Motor examination - right side: 4/5: biceps, triceps, wrist flexion, wrist extension, finger buff sewer, hip flexors, knee extensors, dorsiflexion, toe extension (EHL) , plantarflexion Motor examination - left side: 4/5: biceps, triceps, wrist flexion, wrist extension, finger buff sewer, hip flexors, knee extensors, dorsiflexion, toe extension (EHL) , plantarflexion Detailed sensory examination: intact Reflex and gait examination: intact Reflexes: 1+: ankle, bicep, knee, tricep - Musculoskeletal Musculoskeletal: no pain - Psychiatric Psychiatric: mood/affect appropriate, cooperative Results - Laboratory Findings CBC and BMP: 07/29/17 04:10 07/29/17 04:10 Abnormal Lab Findings: Abnormal Labs 07/29/17 07/29/17 04:10 04:10 Plt Count 451 H Creatinine 0.50 L Glucose 138 H ALT 53 H Alkaline Phosphatase 157 H Amylase <30 L Lipase 20 L Assessment and Plan (1) Trigeminal neuralgia Current Visit: No Status: Acute Code(s): G50.0 - TRIGEMINAL NEURALGIA SNOMED Code(s): 76623773 (2) Migraine Current Visit: No Status: Acute Code(s): G43.909 - MIGRAINE, UNSP, NOT INTRACTABLE, WITHOUT STATUS MIGRAINOSUS SNOMED Code(s): 65801183 (3) History of breast cancer Current Visit: Yes Status: Acute Code(s): Z85.3 - PERSONAL HISTORY OF MALIGNANT NEOPLASM OF BREAST SNOMED Code(s): 926186617 (4) Drug-induced nausea and vomiting Current Visit: No Status: Acute Code(s): R11.2 - NAUSEA WITH VOMITING, UNSPECIFIED; T50.905A - ADVERSE EFFECT OF UNSP DRUG/MEDS/BIOL SUBST, INIT SNOMED Code(s): 591162544 Plan: This patient is a 47-year-old female was admitted to hospital with recurrent right-sided headache symptoms and recurrent migraine. She has a history of right-sided trigeminal neuralgia which was diagnosed about 20 years ago. She has been on treatment for this condition and is currently taking Tegretol 3 and a milligrams 3 times a day. She recently had a flare of the right-sided trigeminal pain and was in the emergency room twice. She was subsequent admitted to hospital today for further evaluation. She underwent computed tomography scan of the brain which was normal. She underwent CT angiogram of the head and neck today the results of which are noted above. No evidence of any acute abnormality on the CT angiogram of the head and neck and no occlusion or aneurysm is seen. We reviewed the results of the CT angiogram today with the patient. Patient has a known history of trigeminal neuralgia affecting the right side. She is unable to tolerate higher doses of Tegretol as this is been tried previously. The patient likely has an intractable form of trigeminal neuralgia as she experiences up to 4 events a year. We are suggesting she may be considered for more aggressive neurosurgical evaluation of this condition. This can be addressed with her primary care physician or with her neurologist upon discharge from hospital. At this time we would recommend continue current dosage with IV Solu-Medrol as this hopefully should alleviate some of the severity of the acute response. Would also consider adding Lyrica in combination with the Tegretol pending her response to this treatment plan. We have discussed all of these findings today with the patient in detail. We do recommend that she consider more aggressive treatment for this condition with referral to a tertiary center. We will continue close neurological follow-up for the patient. Her computed tomography scan of the brain and CTA angiogram results of the head and neck were reviewed with her in detail. Both studies are negative. We will continue close neurological follow-up with the patient during this admission. Her overall prognosis at this time remains guarded. Time with Patient: Greater than 30
--- NOTE | 2017-07-29 18:00 | HP ---
HISTORY AND PHYSICAL DATE OF ADMISSION: 07/29/17. PRESENTING COMPLAINT: Severe headache. HISTORY OF PRESENTING COMPLAINT: A very pleasant 47-year-old patient who is here with her . Follows with Dr. Harrington. The patient has a history of trigeminal neuralgia for which she takes Tegretol, also takes Celexa for anxiety and history of migraines. The patient about a week ago started up with what appeared to be a trigeminal neuralgia pain, starting at around the right the ear going to the upper jaw, the right part of the forehead and was waxing and waning, then slowly continued to get worse. The patient did go to work on . On Sunday there was a holiday. She did work, but then symptoms started getting worse, starting getting nausea, vomiting and then the right part of the head started throbbing. Does not have photophobia. Appetite went down, started having some nausea, vomiting. The patient had a ER visit on 07/27/17. The patient did come get a CT scan of the brain without contrast that was unremarkable and then returned to the ER again this morning and headache continued to get worse and got admitted. REVIEW OF SYSTEMS: CONSTITUTIONAL: Tired. HEENT: As above. No change in vision. RESPIRATORY: None. CARDIOVASCULAR: None. GASTROINTESTINAL: As above. GENITOURINARY: None. MUSCULOSKELETAL: None. DERMATOLOGICAL, HEMATOLOGIC, LYMPHATICS: None. PSYCHIATRY: Anxiety. NEUROLOGICAL: No change in speech. No other focal neurological signs. PAST MEDICAL HISTORY: Migraines, anxiety, trigeminal neuralgia. PAST SURGICAL HISTORY: Appendectomy, uterine ablation, breast reconstruction. SOCIAL HISTORY: The patient smokes half a pack a day over 20 years. Denies alcohol. 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 . FAMILY HISTORY: Cancer, type unknown. HOME MEDICATIONS: Vitamin D3 2000 units p.o. daily, Tegretol 300 mg p.o. t.i.d., Celexa 40 mg p.o. daily. ALLERGIES: None. PHYSICAL EXAMINATION: Temperature 98.5, pulse 80, respirations 16, blood pressure 120/82, pulse ox 95% room air. GENERAL APPEARANCE: Average build, sitting up in bed, awake, light falling from the window, tired-appearing. EYES: Pupils equal. Conjunctivae normal. HEENT: External nose and ears normal. Oral cavity normal. NECK: JVD not raised. Mass not palpable. RESPIRATORY: Effort normal. Lungs are clear. CARDIOVASCULAR: First and second sounds normal. No edema. ABDOMEN: Soft, nontender. Liver and spleen not palpable. LYMPHATICS: No lymph nodes palpable in neck or axillae. PSYCHIATRY: Alert and oriented x3. Mood and affect anxious-appearing. NEUROLOGICAL: Pupils equal. Cranial nerves grossly intact. Power and sensation grossly intact. INVESTIGATIONS: White count 8.6, hemoglobin 13.8, potassium 4.1, BUN 8, creatinine 0.5. UA negative. ASSESSMENT: 1. Intractable headaches, could be status migrainous combined with uncontrollable trigeminal neuralgia pain that can be often times debilitating. 2. Anxiety, not otherwise specified. 3. Chronic nicotine dependence. Patient is a cigarette smoker. PLAN: Neurology was consulted. In the meantime, will give patient a trial of IV steroids 40 mg IV q.8h. Will also put the patient on NSAID in the form of naproxen. Give PPI and give 1 dose of Valium. Also ice packs will be given. Patient to continue on a Tegretol and other home medications. Care was discussed with the patient at the bedside. Await further input from Neurology. Increase IV fluids to 125 mL an hour. The patient not able to eat much. MMODL / IJN: [id number] /
[2017-07-30] MEDS: methylPREDNISolone SOD SUCCI 40 MG/ML 1 ML VIAL IV SCH ×2 (00:58→08:25)
[2017-07-30] MEDS: ONDANSETRON 4 MG/2 ML VIAL IVP PRN (04:51)
[2017-07-30] MEDS: LACTATED RINGERS 1,000 ML IV SCH ×2 (08:25→14:36)
[2017-07-30] MEDS: PANTOPRAZOLE 40 MG TABLET PO SCH (08:25)
[2017-07-30] MEDS: CITALOPRAM HYDROBROMIDE 20 MG TAB PO SCH (08:26)
[2017-07-30] MEDS: ENOXAPARIN 40 MG/0.4 ML SYRINGE SQ SCH (08:26)
[2017-07-30] MEDS: NICOTINE 14MG/24HR PATCH TRANSDERM SCH (08:26)
[2017-07-30] MEDS: NAPROXEN 250 MG TAB PO SCH ×2 (08:26→15:57)
[2017-07-30] MEDS: carBAMazepine 200 MG TAB PO SCH ×2 (08:27→15:57)
[2017-07-30] MEDS: FAMOTIDINE 20 MG TAB PO SCH (08:27)
[2017-07-30 15:11] VITALS: BP 131/86; PULSE 83; TEMP 98.4
--- NOTE | 2017-07-30 17:34 | DS ---
DISCHARGE SUMMARY DATE OF ADMISSION: 07/29/2017. DATE OF DISCHARGE: 07/30/2017 FINAL DIAGNOSES: 1. Uncontrolled pain, intractable headache from trigeminal neuralgia. 2. Anxiety not otherwise specified. 3. Chronic nicotine dependence. Patient is a cigarette smoker. CONSULTATION: Dr. Diane Fonseca from Neurology. HOSPITAL COURSE: The patient has a known history of trigeminal neuralgia; also history of migraines. She presented with trigeminal neuralgia playing up, with severe headaches and pain. The patient was given IV steroids, some naproxen, with which she actually felt better. Dr. Fonseca decided to add more Lyrica. I had a long talk with the patient's today. She is okay to go home with the current medication, as symptoms are getting better on a tapering dose of steroids. She should see then Dr. Fonseca or a family doctor and get a referral to [facility] for neuro procedures. On examination, lungs are clear. CARDIOVASCULAR: First and second sounds normal. DISCHARGE MEDICATIONS: 1. Celexa 40 mg daily. 2. Tegretol 300 mg p.o. t.i.d. 3. Vitamin D3 2000 units p.o. daily. 4. Pepcid 20 mg b.i.d. 5. Naproxen 250 mg p.o. b.i.d. for 5 days. 6. Nicotine patch. 7. Lyrica 75 mg p.o. b.i.d. 8. Prednisone taper. 9. Compazine 5 mg q.8 p.r.n. FOLLOWUP: 1. Follow up with Dr. Fonseca in one week. 2. Follow up with Dr. Harrington on 08/09/2017. Discussion and discharge planning more than 35 minutes. MMODL / IJN: [id number] /
== END 2017-07-30 16:00 | disposition home or self-care (01) ==
LOC: EC 03:39 → 3SUR 07:09
PROVIDERS: ADMIT Hospitalist; ATTEND Hospitalist
DX: G50.0 Trigeminal neuralgia (principal); G43.909 Migraine, unspecified, not intractable, without status migrainosus; F41.9 Anxiety disorder, unspecified; R11.2 Nausea with vomiting, unspecified; T40.2X5A Adverse effect of other opioids, initial encounter; E03.9 Hypothyroidism, unspecified; F17.210 Nicotine dependence, cigarettes, uncomplicated; Z79.899 Other long term (current) drug therapy; Z88.8 Allergy status to other drugs, medicaments and biological substances; Z85.3 Personal history of malignant neoplasm of breast; Z82.49 Family history of ischemic heart disease and other diseases of the circulatory system
CPT/HCPCS: 99285 ×2; 96374 ×2; 96375 ×3; 96361 ×3; 96376 ×2; 96372 ×2; 36415; 80053; 82150; 83690; 85025; 81003; 70496; 70498; G0378 ×2; J2765; J2920 ×2; J3360; J2405 ×2; J1650 ×2; Q9967

== ENCOUNTER → 2018-02-12 | Outpatient (CLI) | payer BC ==
--- NOTE | 2018-02-12 17:10 | MR ---
"EXAMINATION TYPE: MR brain and iac wo/w con DATE OF EXAM: 02/12/2018 COMPARISON: CT brain 07/27/2017 HISTORY: acoustic nerve dizziness TECHNIQUE: Multiplanar, multisequence images of the brain and brainstem is performed without and with IV contras t, utilizing 7.5 mL intravenous Gadavist, and small [id number] high-resolution images obtained thr ough the internal auditory canals . FINDINGS: At the right lateral aspect of the osiel there is an isointense focus present on T1, inversi on recovery, T2-weighted sequences causing some local mass effect on the right lateral aspect of the osiel and measuring approximately 12 mm x 15 mm x 7 mm that show some peripheral enhancement, some loc al dural enhancement is suspected with questionable extension towards the internal auditory canal on the right seen on axial image 12 of the small [id number] postcontrast images. Some central low sig nal is seen on postcontrast images possibly due to some central necrosis Diffusion weighted images de monstrate no evidence of a recent infarct or other diffusion abnormality. There is no extra-axial fl uid collection or significant white matter signal abnormality. Inferior aspect of the right cerebella r hemisphere laterally shows a focal area of low signal on T1 weighted images, serpiginous low signal is present on T2 weighted sequences peripherally, difficult to exclude some minimal peripheral enhan cement following contrast administration. Lesion measures approximately 9 mm in size. The ventricular system and cisternal spaces are normal in size and appearance. The brain volume is age appropriate. Mastoid air cells on the right shows some inflammatory change, isointense fluid collection is present posterior to the mastoids on the right which is an interval finding, there is erosion of the posteri or mastoid, there is cortical destruction of the right occipital bone at this level, lytic focus luz marina uring approximately 2.6 x 3.5 x 1.2 cm. There is some enhancement following contrast administration p eripherally, scattered punctate hypointensities may be due to lytic characteristic of the lesion. Midline structures demonstrate normal morphology. The craniocervical junction appears within normal limits. The dural venous sinuses appear patent. The visualized sinuses are remarkable for possible m ucus retention cyst right maxillary sinus, mucoperiosteal thickening is present, and the globes are i ntact. IMPRESSION: Mass lateral to the osiel and extending towards the internal auditory canal on the right m ay represent meningioma, metastasis not excluded. Lytic focus involving the junction of the occipital bone, posterior temporal bone, correlate for metastasis versus abscess. Inflammatory change present in the mastoid air cells. Lesion along the inferior right cerebellar hemisphere could represent a cav ernous malformation. Consider bone scan, oncology consult. A Yellow level critical message alert has been initiated for Cameron Macias DO via the [facility] [address] | Critical Results System on 02/12/2018 5:07 PM. This message alert has been sent to Cameron Macias DO via the preferences provided by the clinician for the receipt of Radiology Critica l Findings. Message ID [id number]."
== END | disposition home or self-care (01) ==
LOC: RADMRIMAIN 13:41
PROVIDERS: ATTEND Otolaryngology
DX: G93.9 Disorder of brain, unspecified (principal)
CPT/HCPCS: 70553; A9585

== ENCOUNTER → 2018-04-11 | Outpatient (CLI) | payer BC ==
--- NOTE | 2018-04-12 09:33 | MM ---
Reason for exam: additional evaluation requested from prior study. Last mammogram was performed 1 year ago. History: Patient has history of breast cancer at age 36 and previous chest radiation therapy. Family history of breast cancer in 2 maternal aunts at age 50. Benign MG pre op needle loc LT of the left breast, April 14, 2014. Benign MG stereo VAD BX LT of the left breast, March 24, 2014. Breast lift of the left breast, September 2008. Reduction of the right breast, September 2008. Lumpectomy of the left breast, February 2007. Chemotherapy. Radiation therapy. Took hormonal contraceptives for 12 years beginning at age 15. Physical Findings: Nurse did not find any significant physical abnormalities on exam. MG 3D Diag Mammo W/Cad DAIANA Bilateral CC and MLO view(s) were taken. Prior study comparison: April 10, 2017, bilateral MG 3d diag mammo w/cad DAIANA. April 03, 2016, bilateral MG 3d diag mammo w/cad DAIANA. The breast tissue is heterogeneously dense. This may lower the sensitivity of mammography. Finding: Architectural distortion in the upper outer quadrant of the left breast consistent with known lumpectomy changes. Asymmetric breast tissue in the right upper position stable since 2010. There is no discrete abnormality. These results were verbally communicated with the patient and result sheet given to the patient on 04/11/18. ASSESSMENT: Benign, BI-RAD 2 RECOMMENDATION: Follow-up diagnostic mammogram of both breasts in 1 year.
== END | disposition home or self-care (01) ==
LOC: RADMAMWWP 15:23
PROVIDERS: ATTEND Obstetrics & Gynecology
DX: Z08 Encounter for follow-up examination after completed treatment for malignant neoplasm (principal); Z85.3 Personal history of malignant neoplasm of breast
CPT/HCPCS: 77062; 77066

== ENCOUNTER → 2018-05-13 | Outpatient (CLI) | payer BC | END | disposition home or self-care (01) | LOC: LABWHC1 14:03 | PROVIDERS: ATTEND Psychiatry & Neurology Neurology | DX: Z01.812 Encounter for preprocedural laboratory examination (principal) | CPT/HCPCS: 36415; 82565; 84520 ==

== ENCOUNTER → 2018-05-16 | Outpatient (CLI) | payer BC ==
--- NOTE | 2018-05-17 06:20 | MR ---
EXAMINATION TYPE: MR brain and iac wo/w con DATE OF EXAM: 05/16/2018 COMPARISON: 02/12/2018 HISTORY: Rt facial numbness/swelling/pain, abnormal MRI 02-12-18 TECHNIQUE: Multiplanar, multisequence images of the brain and brainstem is performed without and with IV contras t, utilizing 7.5 mL intravenous Gadavist . FINDINGS: Ventricles of normal size. There is no mass effect nor midline shift. There is no sign of i ntracranial hemorrhage. Corpus callosum is within normal limits. Sella turcica is normal. There is no evidence of cortical infarct. There is a rounded 13 x 8 mm mass on the right side of the brainstem a t the level of the osiel. This appears extra-axial. There is no significant mass effect. This extends inferiorly to some extent to the internal auditory canal. Internal auditory canals are not enlarged. There is no mass within the canal. The contrast images gayle w enhancement of the periphery of the mass. There is a mixed signal 8 mm irregular focus on the inferior aspect right cerebellar hemisphere. This could be vascular malformation. There is no significant enhancement. The osiel has normal signal priscilla jalen. There is some mucosal thickening and increased signal in the right maxillary sinus. There is cortical defect involving the right occipital bone posterior to the mastoid portion of the r ight temporal bone. This measures 2.5 cm in length and unchanged. This could be surgical. IMPRESSION: There is a enhancing extra-axial mass at the right cerebellopontine angle unchanged iris red to last MR scan. This could be a meningioma. This could be a neuroma of cranial nerve. Cortical defect right occipital bone unchanged. This could relate surgery. I have no recent CT scan t o compare. Small lesion in the inferior right cerebellar hemisphere could be a vascular malformation and unchang ed. Right maxillary sinusitis increased compared to last exam.
== END | disposition home or self-care (01) ==
LOC: RADMRIMAIN 19:17
PROVIDERS: ATTEND Psychiatry & Neurology Neurology
DX: G93.9 Disorder of brain, unspecified (principal); J32.0 Chronic maxillary sinusitis
CPT/HCPCS: 70553; A9585

== ENCOUNTER → 2019-05-07 | Outpatient (CLI) | payer BC ==
--- NOTE | 2019-05-08 08:52 | MM ---
Reason for exam: additional evaluation requested from prior study. Last mammogram was performed 1 year and 1 month ago. History: Patient has history of breast cancer at age 36 and previous chest radiation therapy. Family history of breast cancer in 2 maternal aunts at age 50. Benign MG pre op needle loc LT of the left breast, April 14, 2014. Benign MG stereo VAD BX LT of the left breast, March 24, 2014. Breast lift of the left breast, September 2008. Reduction of the right breast, September 2008. Lumpectomy of the left breast, February 2007. Chemotherapy. Radiation therapy. Took hormonal contraceptives for 12 years beginning at age 15. Physical Findings: Nurse did not find any significant physical abnormalities on exam. MG 3D Diag Mammo W/Cad DAIANA Bilateral CC and MLO view(s) were taken. Prior study comparison: April 11, 2018, bilateral MG 3d diag mammo w/cad DAIANA. April 10, 2017, bilateral MG 3d diag mammo w/cad DAIANA. The breast tissue is heterogeneously dense. This may lower the sensitivity of mammography. Post surgical changes left upper outer quadrant. These results were verbally communicated with the patient and result sheet given to the patient on 05/07/19. ASSESSMENT: Incomplete: need additional imaging evaluation, BI-RAD 0 RECOMMENDATION: Ultrasound of the right breast.
--- NOTE | 2019-05-08 08:56 | USB ---
Reason for exam: additional evaluation requested from abnormal screening. History: Patient has history of breast cancer at age 36 and previous chest radiation therapy. Family history of breast cancer in 2 maternal aunts at age 50. Benign MG pre op needle loc LT of the left breast, April 14, 2014. Benign MG stereo VAD BX LT of the left breast, March 24, 2014. Breast lift of the left breast, September 2008. Reduction of the right breast, September 2008. Lumpectomy of the left breast, February 2007. Chemotherapy. Radiation therapy. Took hormonal contraceptives for 12 years beginning at age 15. US Breast Limited RT Right limited breast ultrasound including focal area of concern, retroareolar and axilla demonstrates a 0.8 x 0.7 x 0.4cm cystic lesion at 6 o'clock. These results were verbally communicated with the patient and result sheet given to the patient on 05/07/19. ASSESSMENT: Benign, BI-RAD 2 RECOMMENDATION: Follow-up diagnostic mammogram of both breasts in 1 year.
== END | disposition home or self-care (01) ==
LOC: RADMAMWWP 15:13
PROVIDERS: ATTEND Obstetrics & Gynecology
DX: Z08 Encounter for follow-up examination after completed treatment for malignant neoplasm (principal); R92.8 Other abnormal and inconclusive findings on diagnostic imaging of breast; Z85.3 Personal history of malignant neoplasm of breast
CPT/HCPCS: 77062; 77066

== ENCOUNTER → 2020-05-10 | Outpatient (CLI) | payer BC ==
--- NOTE | 2020-05-11 13:11 | MM ---
Reason for exam: additional evaluation requested from prior study. Last mammogram was performed 1 year ago. History: Patient is postmenopausal, has history of breast cancer at age 36, and previous chest radiation therapy. Family history of breast cancer in 2 maternal aunts at age 50. Benign MG pre op needle loc LT of the left breast, April 14, 2014. Benign MG stereo VAD BX LT of the left breast, March 24, 2014. Breast lift of the left breast, September 2008. Reduction of the right breast, September 2008. Lumpectomy of the left breast, February 2007. Chemotherapy. Radiation therapy. Took hormonal contraceptives for 12 years beginning at age 15. Physical Findings: Nurse Summary: 1.5cm nodule in the left breast at 12 o'clock (nurse dw). MG 3D Diag Mammo W/Cad DAIANA Bilateral CC and MLO view(s) were taken. Prior study comparison: May 07, 2019, bilateral MG 3d diag mammo w/cad [facility]NA. April 11, 2018, bilateral MG 3d diag mammo w/cad [facility]NA. The breast tissue is heterogeneously dense. This may lower the sensitivity of mammography. Post surgical and post therapy change left breast with fat necrosis calcifications. 9mm circumscribed mass 6 o'clock right breast slightly larger. Ultrasound previously showed a cyst here. Precautionary 6 month follow up recommended. These results were verbally communicated with the patient and result sheet given to the patient on 05/10/11. ASSESSMENT: Probably benign, BI-RAD 3 RECOMMENDATION: Follow-up diagnostic mammogram of the right breast in 6 months.
== END | disposition home or self-care (01) ==
LOC: RADMAMWWP 13:34
PROVIDERS: ATTEND Obstetrics & Gynecology
DX: Z08 Encounter for follow-up examination after completed treatment for malignant neoplasm (principal); Z85.3 Personal history of malignant neoplasm of breast
CPT/HCPCS: 77062; 77066

== ENCOUNTER → 2020-05-27 | Outpatient (CLI) | payer BC ==
--- NOTE | 2020-05-27 19:58 | BD ---
EXAMINATION TYPE: Axial Bone Density DATE OF EXAM: 05/27/2020 COMPARISON: NONE CLINICAL HISTORY: 49 YR OLD FEMALE......ICD-10 CODE: N95.1 POST MENOPAUSAL Height: 63 Weight: 174 FRAX RISK QUESTIONS: Secondary Osteoporosis: YES 1. Type 1 Diabetes: YES Current Tobacco Use: YES RISK FACTORS HISTORY OF: Postmenopausal woman: IRREGULAR NOW, LMP UNKNOWN, ABLATION YRS AGO Hyperparathyroidism: NO Adrenal Insufficiency: NO MEDICATIONS: Additional Medications: CELEXA, HX OF CHEMO AND RADIATION, DIABETIC MEDS, TRULICITY AND METFORMIN, RE FLEX MEDS, STATIN FOR CHOLESTEROL, VIT D Additional History: HX OF LT BREAST CANCER, LUMPECTOMY, 2006, DIABETIC, REFLUX, CHOLESTEROL EXAM MEASUREMENTS: Bone mineral densitometry was performed using the varinode System. Bone mineral density as measured about the Lumbar spine is: ----- L1-L4(G/cm2): 1.455 T Score Values are as follows: ----- L1: 2.6 ----- L2: 1.8 ----- L3: 2.5 ----- L4: 2.1 ----- L1-L4: 2.3 Bone mineral density FIRST BONE DENSITY ......BASELINE STUDY Bone mineral density about the R hip (g/cm2): 1.053 Bone mineral density about the L hip (g/cm2): 1.107 T Score values are as follows: -----R Neck: -0.4 -----L Neck: 0.1 -----R Total: 0.4 -----L Total: 0.8 Bone mineral density BASELINE BONE DENSITY STUDY FRAX%s: THERE IS A 4.0% CHANCE FOR A MAJOR OSTEOPOROTIC FX AND A 0.2% FOR HIP......PROBABILITY FOR FX ON 10 YRS TIME IMPRESSION: Normal (Values between +1 and -1 indicate normal bone mass). Consider repeating this study in 5 year s or sooner if there is some new clinical indication. NOTE: T-SCORE=SD OF THE YOUNG ADULT MEAN.
== END | disposition home or self-care (01) ==
LOC: RADBDWWP 12:39
PROVIDERS: ATTEND Obstetrics & Gynecology
DX: N95.1 Menopausal and female climacteric states (principal)
CPT/HCPCS: 77080

== ENCOUNTER → 2020-11-10 | Outpatient (CLI) | payer BC ==
--- NOTE | 2020-11-10 15:17 | MM ---
Reason for exam: additional evaluation requested from prior study. Last mammogram was performed 6 months ago. History: Patient is postmenopausal, has history of breast cancer at age 36, and previous chest radiation therapy. Family history of breast cancer in 2 maternal aunts at age 50. Benign MG pre op needle loc LT of the left breast, April 14, 2014. Benign MG stereo VAD BX LT of the left breast, March 24, 2014. Breast lift of the left breast, September 2008. Reduction of the right breast, September 2008. Lumpectomy of the left breast, February 2007. Chemotherapy. Radiation therapy. Took hormonal contraceptives for 12 years beginning at age 15. Physical Findings: Nurse did not find any significant physical abnormalities on exam. MG 3D Diag Mammo W/Cad RT CC and MLO view(s) were taken of the right breast. Prior study comparison: May 10, 2020, bilateral MG 3d diag mammo w/cad [facility]NA. May 07, 2019, bilateral MG 3d diag mammo w/cad [facility]. April 11, 2018, bilateral MG 3d diag mammo w/cad DAIANA. The breast tissue is heterogeneously dense. This may lower the sensitivity of mammography. Right asymmetry 6 o'clock is unchanged and corresponded to cyst on prior ultrasound. Clinical follow up recommended for left pain. If focal please consider ultrasound. These results were verbally communicated with the patient and result sheet given to the patient on 11/10/20. ASSESSMENT: Benign, BI-RAD 2 RECOMMENDATION: Routine screening mammogram of both breasts in 6 months. Back on schedule for April 2020.
== END | disposition home or self-care (01) ==
LOC: RADMAMWWP 14:15
PROVIDERS: ATTEND Obstetrics & Gynecology
DX: R92.8 Other abnormal and inconclusive findings on diagnostic imaging of breast (principal); Z78.0 Asymptomatic menopausal state; Z85.3 Personal history of malignant neoplasm of breast; Z80.3 Family history of malignant neoplasm of breast
CPT/HCPCS: 77061; 77065

== ENCOUNTER → 2021-06-22 | Outpatient (CLI) | payer BC ==
--- NOTE | 2021-06-22 14:13 | MM ---
Reason for exam: additional evaluation requested from prior study. Last mammogram was performed 7 months ago. History: Patient is postmenopausal, has history of breast cancer at age 36, and previous chest radiation therapy. Family history of breast cancer in 2 maternal aunts at age 50. Benign MG pre op needle loc LT of the left breast, April 14, 2014. Benign MG stereo VAD BX LT of the left breast, March 24, 2014. Breast lift of the left breast, September 2008. Reduction of the right breast, September 2008. Lumpectomy of the left breast, February 2007. Chemotherapy. Radiation therapy. Took hormonal contraceptives for 12 years beginning at age 15. Physical Findings: Nurse did not find any significant physical abnormalities on exam. MG 3D Diag Mammo W/Cad DAIANA Bilateral CC and MLO view(s) were taken. Prior study comparison: November 10, 2020, right breast MG 3d diag mammo w/cad RT. May 10, 2020, bilateral MG 3d diag mammo w/cad DAIANA. The breast tissue is heterogeneously dense. This may lower the sensitivity of mammography. There is chronic nodularity in the right breast. No significant new findings when compared with previous films. These results were verbally communicated with the patient and result sheet given to the patient on 06/22/21. ASSESSMENT: Benign, BI-RAD 2 RECOMMENDATION: Routine screening mammogram of both breasts in 1 year.
== END | disposition home or self-care (01) ==
LOC: RADMAMWWP 13:26
PROVIDERS: ATTEND Obstetrics & Gynecology
DX: R92.8 Other abnormal and inconclusive findings on diagnostic imaging of breast (principal); Z85.3 Personal history of malignant neoplasm of breast; Z78.0 Asymptomatic menopausal state; Z80.3 Family history of malignant neoplasm of breast
CPT/HCPCS: 77062; 77066

== ENCOUNTER → 2022-08-01 | Outpatient (CLI) | payer BC ==
--- NOTE | 2022-08-02 09:39 | MM ---
Reason for Exam: Screening (asymptomatic). Last mammogram was performed 1 year(s) and 2 month(s) ago. Patient History: Menarche at age 10. First Full-Term at age 28. Late child-bearing (after 28). Postmenopausal. Patient has history of breast feeding. Breast cancer, left, age 36. Previous chest radiation therapy at age 36. Hormonal Contraceptives, starting at age 15 for 12 years. 09/2008, Reduction on the Right side. 02/2007, Lumpectomy on the Left side. 04/14/2014, Benign Core Biopsy on the left side. 03/24/2014, Benign Core Biopsy on the left side. Chemotherapy. Radiation Therapy. Maternal aunt had breast cancer, age 50. Maternal aunt had breast cancer, age 50. Prior Study Comparison: 04/03/2016 Bilateral Diagnostic Mammogram, [facility]. 04/10/2017 Bilateral Diagnostic Mammogram, [facility]. 04/11/2018 Bilateral Diagnostic Mammogram, [facility]. 05/07/2019 Bilateral Diagnostic Mammogram, [facility]. 05/10/2020 Bilateral Diagnostic Mammogram, [facility]. 11/10/2020 Right Diagnostic Mammogram, [facility]. 06/22/2021 Bilateral Diagnostic Mammogram, [facility]. Tissue Density: The breast tissue is heterogeneously dense. This may lower the sensitivity of mammography. Findings: Analyzed By CAD. There is diminished size to the left breast with regional dystrophic calcification in the upper portion. Stable asymmetric prominent tissue in the right breast upper outer aspect posteriorly. Benign-appearing right axillary lymph nodes are redemonstrated. No suspicious new mass or distortion in either breast. Overall Assessment: Benign, BI-RAD 2 Management: Screening Mammogram of both breasts in 1 year. A clinical breast exam by your physician is recommended on an annual basis and results should be correlated with mammographic findings. Electronically signed and approved by: Mariusz Wing M.D.
== END | disposition home or self-care (01) ==
LOC: RADMAMWWP 09:17
PROVIDERS: ATTEND Obstetrics & Gynecology
DX: Z12.31 Encounter for screening mammogram for malignant neoplasm of breast (principal); Z78.0 Asymptomatic menopausal state; Z80.3 Family history of malignant neoplasm of breast
CPT/HCPCS: 77063; 77067

== ENCOUNTER → 2023-10-01 | Outpatient (CLI) | payer BC ==
--- NOTE | 2023-10-02 20:59 | MM ---
Reason for Exam: Screening (asymptomatic). Last mammogram was performed 1 year(s) and 2 month(s) ago. Patient History: Menarche at age 10. First Full-Term at age 28. Late child-bearing (after 30). Postmenopausal. Patient has history of breast feeding. Breast cancer, left, age 36. Previous chest radiation therapy at age 36. Hormonal Contraceptives, starting at age 15 for 12 years. 09/2008, Reduction on the Right side. 02/2007, Lumpectomy on the Left side. 04/14/2014, Benign Core Biopsy on the left side. 03/24/2014, Benign Core Biopsy on the left side. Chemotherapy. Radiation Therapy. Maternal aunt had breast cancer, age 50. Maternal aunt had breast cancer, age 50. Prior Study Comparison: 11/10/2020 Right Diagnostic Mammogram, [facility]. 06/22/2021 Bilateral Diagnostic Mammogram, [facility]. 08/01/2022 Bilateral MG 3D screening mammo w/cad, [facility]. Tissue Density: The breasts are heterogeneously dense, which may obscure small masses. Findings: Analyzed By CAD. Chronic focal asymmetry posterior upper outer quadrant right breast. Postsurgical and posttreatment changes redemonstrated left breast. There is no suspicious group of microcalcifications or new suspicious mass in either breast. Overall Assessment: Benign, BI-RAD 2 Management: Screening Mammogram of both breasts in 1 year. . Patient should continue monthly self-breast exams. A clinical breast exam by your physician is recommended on an annual basis. This exam should not preclude additional follow-up of suspicious palpable abnormalities. Electronically signed and approved by: Oneyda Kruger M.D. Radiologist
== END | disposition home or self-care (01) ==
LOC: RADMAMWWP 14:11
PROVIDERS: ATTEND Family Medicine
DX: Z12.31 Encounter for screening mammogram for malignant neoplasm of breast (principal); Z80.3 Family history of malignant neoplasm of breast; Z78.0 Asymptomatic menopausal state; Z85.3 Personal history of malignant neoplasm of breast
CPT/HCPCS: 77063; 77067

== ENCOUNTER → 2024-10-08 | Outpatient (CLI) | payer BC ==
--- NOTE | 2024-10-08 13:47 | MM ---
Reason for Exam: Clinical finding. Last screening mammogram was performed 12 month(s) ago. Indicated Problems: Pain of the left side for 1 Month(s). Patient History: Menarche at age 10. First Full-Term at age 28. Late child-bearing (after 30). Postmenopausal. Patient has history of breast feeding. Breast cancer, left, age 36. Previous chest radiation therapy at age 36. Hormonal Contraceptives, starting at age 15 for 12 years. 09/2008, Reduction on the Right side. 02/2007, Lumpectomy on the Left side. 04/14/2014, Benign Core Biopsy on the left side. 03/24/2014, Benign Core Biopsy on the left side. Chemotherapy. Radiation Therapy. Maternal aunt had breast cancer, age 50. Maternal aunt had breast cancer, age 50. Prior Study Comparison: 11/27/1995 Screening Mammogram, Unknown. 03/13/2012 Bilateral Diagnostic Mammogram, [facility]. 03/14/2013 Bilateral Diagnostic Mammogram, [facility]. 03/16/2014 Bilateral Diagnostic Mammogram, [facility]. 12/31/2014 Left Diagnostic Mammogram, [facility]. 04/02/2015 Bilateral Diagnostic Mammogram, [facility]. 04/03/2016 Bilateral Diagnostic Mammogram, [facility]. 04/10/2017 Bilateral Diagnostic Mammogram, [facility]. 04/11/2018 Bilateral Diagnostic Mammogram, [facility]. 05/07/2019 Bilateral Diagnostic Mammogram, [facility]. 05/07/2019 Right Diagnostic Ultrasound, [facility]. 05/10/2020 Bilateral Diagnostic Mammogram, [facility]. 11/10/2020 Right Diagnostic Mammogram, [facility]. 06/22/2021 Bilateral Diagnostic Mammogram, [facility]. 08/01/2022 Bilateral MG 3D screening mammo w/cad, [facility]. 10/01/2023 Bilateral MG 3D screening mammo w/cad, [facility]. Tissue Density: The breasts are heterogeneously dense, which may obscure small masses. Findings: Analyzed By CAD. Diminished size to the left breast with large dystrophic calcifications and surgical clips is redemonstrated. Stable focal asymmetry or focal prominent tissue upper aspect right breast. No suspicious new mass or suspicious group of microcalcification in either breast. Overall Assessment: Benign, BI-RAD 2 Management: Screening Mammogram of both breasts in 1 year. Manage patient's symptoms clinically. Return to routine follow-up. Results were given to the patient verbally at the time of exam. Patient should continue monthly self-breast exams. A clinical breast exam by your physician is recommended on an annual basis. This exam should not preclude additional follow-up of suspicious palpable abnormalities. Note on Bridget scores and lifetime risk: 1. A Bridget score greater than 3% is considered moderate risk. If this is the case, consider specialist referral to assess eligibility for a risk reducing agent. 2. If overall lifetime risk for the development of breast cancer is 20% or higher, the patient may qualify for future screening with alternating mammogram and breast MRI. [facility], , 10/08/2024 1:44 PM. Electronically signed and approved by: Mariusz Wing M.D.
== END | disposition home or self-care (01) ==
LOC: RADMAMWWP 13:07
PROVIDERS: ATTEND Family Medicine
DX: N64.4 Mastodynia (principal); R92.333 Mammographic heterogeneous density, bilateral breasts; R92.1 Mammographic calcification found on diagnostic imaging of breast; Z80.3 Family history of malignant neoplasm of breast; Z85.3 Personal history of malignant neoplasm of breast; Z78.0 Asymptomatic menopausal state
CPT/HCPCS: 77062; 77066